=== PATIENT | female | born 1950 | race Caucasian/White ===

== ENCOUNTER 2023-01-16 21:08 | Emergency (ER) | payer MEDICARE, OTHER, SELFPAY ==
--- NOTE | 2023-01-16 21:56 | ED.GENADULT ---
HPI - General Adult General Chief complaint: Psychiatric Symptoms Stated complaint: mental health eval, states she is sick Time Seen by Provider: 01/16/23 21:56 Source: patient Mode of arrival: Ambulatory Limitations: no limitations History of Present Illness HPI narrative: Patient is a 72-year-old female. She states she is here for evaluation because she is sick? she states that she has a urinary tract infection. She also states she is parasites her feet and also her abdomen. She states she is some sort of [place] illness that is making her sick. She also reports she is bugs coming out of her anus and mouth vagina. She is not currently on any antibiotics. Related Data Home Medications Medication Instructions Recorded Confirmed spironolactone 50 mg tablet ##0 09/11/17 (Aldactone) Previous Rx's Medication Instructions Recorded potassium chloride 10 mEq 10 meq PO DAILY 5 days #5 tabs 01/17/23 tablet,extended release Allergies Allergy/AdvReac Type Severity Reaction Status Date / Time Penicillins [PENICILLINS] Allergy Unknown Unverified 11/26/17 12:36 Review of Systems Constitutional Constitutional: Reports system reviewed and no additional complaints, except as documented Cardiovascular Cardiovascular: Reports system reviewed and no additional complaints, except as documented Respiratory Respiratory: Reports system reviewed and no additional complaints, except as documented Gastrointestinal Gastrointestinal: Reports system reviewed and no additional complaints, except as documented Genitourinary Genitourinary: Reports system reviewed and no additional complaints, except as documented Integumentary/Breasts Skin/Breast: Reports system reviewed and no additional complaints, except as documented Neurologic Neurologic: Reports system reviewed and no additional complaints, except as documented Patient History Family History (Updated 10/15/17 @ 00:00 by Conversion Provider) Father Stroke Mother Hypertension Social History Smoking Status: Current every day smoker Exam Initial Vital Signs Initial Vital Signs: Vital Signs Temperature 98.6 F 01/16/23 22:03 Pulse Rate 82 01/16/23 22:03 Respiratory Rate 18 01/16/23 22:03 Pulse Oximetry 100 01/16/23 22:03 Oxygen Delivery Method Room Air 01/16/23 22:03 HENMT Head: normal to inspection and normocephalic Resp Effort & Inspection: normal respiratory effort Auscultation: clear to auscultation bilaterally Cardio Rate: regular rate Rhythm: regular rhythm GI Inspection: normal to inspection Skin Other: Patient has superficial wounds on the anterior aspect of both her shins. There is no erythema. No signs of cellulitis. No vesicles. No pustules. Neuro General: patient alert, patient awake and moves all extremities Extrem General: capillary refill normal Course Orders Ordered: ED Orders 01/16/23 22:00 Urine Microscopic Stat 01/16/23 22:02 Urine Drug Screen, Rapid Stat 01/16/23 23:06 Basic Metabolic Panel Stat Complete Blood Count AUTO DIFF Stat 01/17/23 00:09 Urine Culture Stat Discontinued Medications Potassium Chloride (Potassium Chloride 20 Meq Tab) 40 meq PO NOW ONE Stop: 01/16/23 23:43 Last Admin: 01/16/23 23:49 Dose: 40 meq Documented By: NEL Vital Signs Vital signs: Vital Signs - 8 hr 01/16/23 22:03 01/16/23 22:09 01/17/23 00:17 Temperature 98.6 F Pulse Rate 82 90 Respiratory Rate 18 18 Blood Pressure 199/80 H Pulse Oximetry 100 99 Oxygen Delivery Method Room Air Room Air 01/17/23 00:23 Temperature Pulse Rate Respiratory Rate Blood Pressure 198/110 H Pulse Oximetry Oxygen Delivery Method Medical Decision Making Lab Data Lab results reviewed: Yes I reviewed the patient's lab results. 01/16/23 23:06 01/16/23 23:06 Labs: Lab Results 01/16/23 01/16/23 01/16/23 Range/Units 22:00 22:02 23:06 WBC 9.0 (4.5-11.0) X10^3/uL RBC 4.59 (4.0-5.2) X10^6/uL Hgb 13.6 (12.0-16.0) g/dL Hct 40.5 (36-46) % MCV 88.3 (80-100) fL MCH 29.6 (26-34) PG MCHC 33.6 (30-36) % RDW 14.3 (11.6-14.8) % Plt Count 265 (150-400) X10^3/uL Neut % (Auto) 73.3 (50-75) % Lymph % (Auto) 18.4 L (25-40) % Mcculloch % (Auto) 6.2 (3-14) % Eos % (Auto) 1.6 L (2-4) % Baso % (Auto) 0.5 (0-2) % Neut # (Auto) 6600 (3445-2762) /uL Lymph # (Auto) 1700 (5306-0674) /uL Mcculloch # (Auto) 600 (0-900) /uL Eos # (Auto) 100 (0-450) /uL Baso # (Auto) 0 (0-100) /uL Sodium (137-145) mmol/L Potassium (3.4-5.1) mmol/L Chloride (98-107) mmol/L Carbon Dioxide (22-32) mmol/L BUN (7-17) mg/dL Creatinine (0.52-1.04) mg/dL Estimated GFR (>60) mL/min BUN/Creatinine Ratio (6-22) Glucose (80-110) mg/dL Calcium (8.4-10.2) mg/dL Urine RBC 1-5/hpf (0-5/HPF) Urine WBC 1-5/hpf (0-5/HPF) Ur Squamous Epith Cells 0-1 /hpf (0-5/HPF) Urine Bacteria None seen (None) Ur Culture Indicated? Cult not indicated U Opiates 300ng/mL cut Negative (Negative) Ur Oxycodone Screen Negative (Negative) Urine Methadone Screen Negative (Negative) Ur Barbiturates Screen Negative (Negative) U Tricyclic Antidepress Negative (Negative) Ur Phencyclidine Scrn Negative (Negative) Ur Amphetamines Screen Negative (Negative) U Methamphetamines Scrn Negative (Negative) Ur MDMA Scrn (Ecstasy) Negative (Negative) U Benzodiazepines Scrn Negative (Negative) Urine Cocaine Screen Negative (Negative) U Marijuana (THC) Screen Negative (Negative) 01/16/23 Range/Units 23:06 WBC (4.5-11.0) X10^3/uL RBC (4.0-5.2) X10^6/uL Hgb (12.0-16.0) g/dL Hct (36-46) % MCV (80-100) fL MCH (26-34) PG MCHC (30-36) % RDW (11.6-14.8) % Plt Count (150-400) X10^3/uL Neut % (Auto) (50-75) % Lymph % (Auto) (25-40) % Mcculloch % (Auto) (3-14) % Eos % (Auto) (2-4) % Baso % (Auto) (0-2) % Neut # (Auto) (2337-3977) /uL Lymph # (Auto) (7324-5355) /uL Mcculloch # (Auto) (0-900) /uL Eos # (Auto) (0-450) /uL Baso # (Auto) (0-100) /uL Sodium 138 (137-145) mmol/L Potassium 2.5 L* (3.4-5.1) mmol/L Chloride 105 (98-107) mmol/L Carbon Dioxide 31 (22-32) mmol/L BUN 12 (7-17) mg/dL Creatinine 0.59 (0.52-1.04) mg/dL Estimated GFR > 60 (>60) mL/min BUN/Creatinine Ratio 20.3 (6-22) Glucose 125 H (80-110) mg/dL Calcium 9.3 (8.4-10.2) mg/dL Urine RBC (0-5/HPF) Urine WBC (0-5/HPF) Ur Squamous Epith Cells (0-5/HPF) Urine Bacteria (None) Ur Culture Indicated? U Opiates 300ng/mL cut (Negative) Ur Oxycodone Screen (Negative) Urine Methadone Screen (Negative) Ur Barbiturates Screen (Negative) U Tricyclic Antidepress (Negative) Ur Phencyclidine Scrn (Negative) Ur Amphetamines Screen (Negative) U Methamphetamines Scrn (Negative) Ur MDMA Scrn (Ecstasy) (Negative) U Benzodiazepines Scrn (Negative) Urine Cocaine Screen (Negative) U Marijuana (THC) Screen (Negative) Urine Dip Bedside Urine Glucose Negative Bedside Urine Bilirubin - Negative Bedside Urine Ketone - Negative Urine Specific Yancey 1.015 Bedside Urine Occult Blood - Negative Bedside Urine pH 7 Bedside Urine Protein ++ 100 Bedside Urine Urobilinogen - Negative Bedside Urine Nitrite - Negative Bedside Urine Leukocytes - Negative Esterase Point of care testing: Urine Dip Bedside Urine Glucose Negative Bedside Urine Bilirubin - Negative Bedside Urine Ketone - Negative Urine Specific Yancey 1.015 Bedside Urine Occult Blood - Negative Bedside Urine pH 7 Bedside Urine Protein ++ 100 Bedside Urine Urobilinogen - Negative Bedside Urine Nitrite - Negative Bedside Urine Leukocytes - Negative Esterase MDM Narrative Medical decision making narrative: No bugs coming from her orifice is noted on exam. A urinary tract infection shows no signs of infection. Her labs are unremarkable except for a potassium that is low. She tolerated oral potassium. Was no indication for any antibiotics. Tried to reassure the patient that I it low suspicion that she had a parasite in her feet and also tried to reassure her that she did not have urinary tract infection although she states that she is a ?special type? of infection. I did send her home with a prescription for potassium to take for the next couple days. No further workup required in the emergency department Discharge Plan Departure Patient Disposition: Home Clinical Impression: Hypokalemia Instructions: DI for Hypokalemia Activity Restrictions/Additional Instructions: If you can find it [id number] recommend that you take 10 mEq potassium on a daily basis for the next 5 days. Just in case you can not find it [id number] I printed a prescription of this for you. You can contact the medical records department here at the hospital did a copy of your records. Prescriptions: New potassium chloride 10 mEq tablet extended release 10 meq PO DAILY 5 Days Qty: 5 0RF No Action spironolactone [Aldactone] 50 mg tablet Qty: 0 Stand Alone Forms: Patient Portal/API
[2023-01-16 22:03] VITALS: PULSE 82; RESP 18; TEMP 37; O2SAT 100; BMI 24.2
[2023-01-16 22:09] VITALS: BP 199/80
[2023-01-16 22:11] LABS: UR Morphine/Opiate cutoff 300 Negative (Negative); Ur Creatinine Normal (Normal); Ur Specific Gravity Normal (Normal); Urine Amphetamines Negative (Negative); Urine Barbiturates Negative (Negative); Urine Benzodiazepines Negative (Negative); Urine Cocaine Negative (Negative); Urine MDMA Negative (Negative); Urine Methadone Negative (Negative); Urine Methamphetamines Negative (Negative); Urine Oxycodone Negative (Negative); Urine Phencyclidine Negative (Negative); Urine Tetrahydrocannabinol Negative (Negative); Urine Tricyclic Antidepressant Negative (Negative); Urine pH Normal (Normal)
[2023-01-16 22:16] LABS: Bacteria Urine None Seen; Culture Indicated Urine Cult Not Indicated; RBC Urine 1-5/HPF (0-5/HPF); Squamous Epithelial Cell Urine 0-1 /HPF (0-5/HPF); WBC Urine 1-5/HPF (0-5/HPF)
[2023-01-16 23:24] LABS: Add Manual Diff / Slide Review NO; Basophils Absolute Auto 0 /uL (0-100); Basophils Percent Auto 0.5 % (0-2); Eosinophils Absolute Auto 100 /uL (0-450); Eosinophils Percent Auto 1.6 % (2-4); Hematocrit 40.5 % (36-46); Hemoglobin 13.6 g/dL (12.0-16.0); Lymphocytes Absolute Auto 1700 /uL (1100-4500); Lymphocytes Percent Auto 18.4 % (25-40); Mean Corpuscular HGB Conc 33.6 % (30-36); Mean Corpuscular Hemoglobin 29.6 PG (26-34); Mean Corpuscular Volume 88.3 fL (80-100); Monocytes Absolute Auto 600 /uL (0-900); Monocytes Percent Auto 6.2 % (3-14); Neutrophils Absolute Auto 6600 /uL (1500-7000); Neutrophils Percent Auto 73.3 % (50-75); Platelet Count 265 X10^3/uL (150-400); Red Blood Cell Count 4.59 X10^6/uL (4.0-5.2); Red Cell Distribution Width 14.3 % (11.6-14.8)
[2023-01-16 23:31] LABS: BUN Creatinine Ratio 20.3 (6-22); Blood Urea Nitrogen 12 mg/dL (7-17); Calcium 9.3 mg/dL (8.4-10.2); Carbon Dioxide 31 mmol/L (22-32); Chloride 105 mmol/L (98-107); Estimated Glomerular Filt Rate > 60 mL/min (>60); Glucose 125 mg/dL (80-110); HEMOLYSIS 18 (0-50); Sodium 138 mmol/L (137-145)
[2023-01-16 23:34] LABS: Potassium 2.5 mmol/L (3.4-5.1)
[2023-01-16] MEDS: POTASSIUM CHLORIDE 20 MEQ TAB 40 MEQ PO (23:49)
--- NOTE | 2023-01-17 00:08 | PC.NURSE ---
Patient was found smoking in her room. Cigarettes and fruit dryer removed at that time.
[2023-01-17 00:17] VITALS: PULSE 90; RESP 18; O2SAT 99
[2023-01-17 00:23] VITALS: BP 198/110
== END 2023-01-17 00:42 | disposition home or self-care (01) ==
PROVIDERS: Emergency Provider Emergency Medicine
DX: E87.6 Hypokalemia (principal)
CPT/HCPCS: 36415; 80048; 80305; 81003; 81015; 85025; 87086; 99283

== ENCOUNTER 2024-09-07 13:13 | Emergency (ER) | payer MEDICARE, MEDICAID, OTHER, SELFPAY ==
[2024-09-07 13:13] VITALS: BP 219/89; PULSE 75; RESP 14; TEMP 37.1; O2SAT 98; BMI 19.7
--- NOTE | 2024-09-07 14:25 | PC.NURSE ---
Pt states that she has recently been [facility] out of [facility]. C/o / pain bilaterally in feet. Pt given warm blankets, lunch tray and working with PROJECT ENG for hotel voucher. Pt a&Ox4.
[2024-09-07 15:29] VITALS: BP 190/88; PULSE 80; RESP 20; TEMP 37; O2SAT 99
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
== END 2024-09-07 15:32 | disposition home or self-care (01) ==
PROVIDERS: Emergency Provider Student in an Organized Health Care Education/Training Program
DX: R20.9 Unspecified disturbances of skin sensation (principal)
CPT/HCPCS: 99281